=== PATIENT | male | born 1980 | race Caucasian/White ===

== ENCOUNTER 2017-01-22 15:50 | Emergency (ER) | payer SELFPAY ==
[~2017-01-22] VITALS: Ht 162.6 cm; Wt 56.7 kg
[2017-01-22 16:17] VITALS: BP 124/77
[2017-01-22] MEDS ORDERED: TRAM-29 PO (16:36)
[2017-01-22] MEDS ORDERED: METH-37 PO (16:36)
[2017-01-22] MEDS ORDERED: METH4TAB2 PO (16:36)
--- NOTE | 2017-01-22 16:36 | PHYS DOC ---
Adult General Chief Complaint Chief Complaint: BACK PAIN - NO INJURY HPI HPI Patient is a 36 year old male with history of asthma and chronic left low back pain radiating into the left lower extremity who presents today complaining of exacerbation of chronic back pain radiating into the left lower extremity. Patient states he palpated and knot on the left low back which she believes is the source for his pain. Patient denies any new injuries. Denies any loss of bowel bladder function. Review of Systems Review of Systems Constitutional: Denies fever or chills [] Eyes: Denies change in visual acuity, redness, or eye pain [] GI: Denies abdominal pain, nausea, vomiting, bloody stools or diarrhea [] : Denies dysuria or hematuria [] Musculoskeletal: Denies back pain or joint pain [] Integument: Low back pain, knot on the back Neurologic: Denies headache, focal weakness or sensory changes [] Endocrine: Denies polyuria or polydipsia [] Allergies Allergies Allergies Coded Allergies Type Severity Reaction Last Updated Verified No Known Drug Allergies 01/22/17 No Physical Exam Physical Exam Constitutional: Well developed, well nourished, no acute distress, non-toxic appearance. [] HENT: Normocephalic, atraumatic, bilateral external ears normal, oropharynx moist, no oral exudates, nose normal. [] Abdomen: Bowel sounds normal, soft, no tenderness, no masses, no pulsatile masses. [] Skin: Warm, dry, no erythema, no rash. [] Back: Tiny knot suspicious of a fatty tumor approximately 1 x 1 cm on the left lower lumbar region. Diffuse paraspinal muscle tenderness to the left lower lumbar region, no midline tenderness, no CVA tenderness. [] Extremities: No tenderness, no cyanosis, no clubbing, ROM intact, no edema. [] Neurologic: Alert and oriented X 3, normal motor function, normal sensory function, no focal deficits noted. [] Psychologic: Affect normal, judgement normal, mood normal. [] EKG EKG [] Radiology/Procedures Radiology/Procedures [] Course & Med Decision Making Course & Med Decision Making Pertinent Labs and Imaging studies reviewed. (See chart for details) Patient is in the ED complaining of chronic low back pain with sciatica. He is concerned about not on his low back. Did not appears to be a fatty tumor. Reassured him it's not the source of his pain. Recommended he follows up with the primary care doctor in the pain clinic which was provided. Shannan Disclaimer Shannan Disclaimer This electronic medical record was generated, in whole or in part, using a voice recognition dictation system. Departure Departure Impression: Primary Impression: Back pain Additional Impressions: Sciatic leg pain Lipoma Disposition: HOME, SELF-CARE Condition: STABLE Referrals: NO PCP (PCP) Follow-up with a doctor from the list provided Patient Instructions: Back Pain, Adult, Lipoma-Brief Additional Instructions: You were seen for chronic low back pain with sciatica. We highly recommend you establish care with one of the doctors from the list provided. Consider following up with the pain clinic as well. Scripts Methylprednisolone (Medrol)4 Mg Tab.ds.pk1 Pkg PO UD #1 PKG Prov:JANETTE BROWN APRN 01/22/17 Tramadol Hcl (Ultram)50 Mg Tablet1 Tab PO Q6HRS #30 TAB Prov:JANETTE BROWN APRN 01/22/17 Methocarbamol (Robaxin)500 Mg Tablet1 Tab PO TID #30 TAB Prov:JANETTE BROWN APRN 01/22/17 Problem Qualifiers Primary Impression: Back pain Back pain location: back pain in unspecified location Chronicity: chronic Back pain laterality: left Qualified Code: M54.9 - Dorsalgia, unspecified Additional Impressions: Lipoma Lipoma location: trunk Qualified Code: D17.1 - Benign lipomatous neoplasm of skin and subcutaneous tissue of trunk JANETTE BROWN APRN January 22, 2017 16:36
== END 2017-01-22 16:49 | disposition home or self-care (01) ==
LOC: ER 15:50
DX: M54.42 Lumbago with sciatica, left side (principal); D17.1 Benign lipomatous neoplasm of skin and subcutaneous tissue of trunk; J45.909 Unspecified asthma, uncomplicated
CPT/HCPCS: 99283

== ENCOUNTER 2017-03-21 10:31 | Emergency (ER) | payer SELFPAY ==
[~2017-03-21] VITALS: Ht 162.6 cm; Wt 54.4 kg
[~2017-03-21 10:31] MED LIST: METH-37 PO; METH4TAB2 PO; TRAM-48 PO
[2017-03-21 11:01] VITALS: BP 105/57
[2017-03-21] MEDS ORDERED: HYDROcodone/APAP 5/325MG 1 TAB TABLET PO ONE (11:45)
--- NOTE | 2017-03-21 11:54 | RAD ---
Indication: Right hand injury and pain and swelling Time of exam 11:45 AM The distal radius and ulna are intact. The carpus is intact. Metacarpals and phalanges are intact. No fractures are seen. No significant soft tissue swelling is seen. Impression: No acute bony abnormality is detected.
--- NOTE | 2017-03-21 12:15 | RAD ---
Indication: Fall and right shoulder pain. Time of exam 11:41 AM 3 views of the right shoulder were obtained. The glenohumeral and acromial clavicular alignment are normal. The acromiohumeral space is normal. No fracture or dislocation is detected. Impression: No acute abnormality is detected.
[2017-03-21] MEDS ORDERED: METH-37 PO (12:43)
[2017-03-21] MEDS ORDERED: TRAM-48 PO (12:43)
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
== END 2017-03-21 12:45 | disposition home or self-care (01) ==
LOC: ER 10:31
DX: S46.911A Strain of unspecified muscle, fascia and tendon at shoulder and upper arm level, right arm, initial encounter (principal); S63.91XA Sprain of unspecified part of right wrist and hand, initial encounter; F41.9 Anxiety disorder, unspecified; J45.909 Unspecified asthma, uncomplicated; F32.9 Major depressive disorder, single episode, unspecified; G89.29 Other chronic pain; Y04.0XXA Assault by unarmed brawl or fight, initial encounter; Y93.89 Activity, other specified; Y92.89 Other specified places as the place of occurrence of the external cause; Y99.8 Other external cause status
CPT/HCPCS: 73030; 73130; 99284

== ENCOUNTER 2017-03-25 23:27 | Emergency (ER) | payer SELFPAY ==
[~2017-03-25] VITALS: Ht 162.6 cm; Wt 54.4 kg
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
[2017-03-26] MEDS ORDERED: IV NORMAL SALINE 1000ML BAG 1,000 ML IV SCH (00:15)
[2017-03-26] MEDS ORDERED: methylPREDNISolone SOD SUCC PF 125 MG/2 ML VIAL. IV ONE (00:30)
[2017-03-26] MEDS ORDERED: FAMOTIDINE 20 MG/2 ML VIAL IVP ONE (00:30)
[2017-03-26] MEDS ORDERED: diphenhydrAMINE 50 MG/ML VIAL IV ONE (00:30)
[2017-03-26 00:49] LABS: BASO # 0.1 x10^3/uL (0.0-0.2); BASO % 1 % (0-3); EOS % 1 % (0-3); HEMATOCRIT 39.2 % (39.0-53.0); HEMOGLOBIN 12.9 g/dL (13.0-17.5); LYMPH # 1.7 x10^3/uL (1.0-4.8); LYMPH % 14 % (24-48); MEAN CORPUSCULAR HEMOGLOBIN 30 pg (25-35); MEAN CORPUSCULAR HGB CONC 33 g/dL (31-37); MEAN CORPUSCULAR VOLUME 92 fL (79-100); MONO % 10 % (0-9); NEUT % 75 % (31-73); PLATELET COUNT 257 x10^3/uL (140-400); RED BLOOD COUNT 4.27 x10^6/uL (4.30-5.70); RED CELL DISTRIBUTION WIDTH 14.4 % (11.5-14.5); WHITE BLOOD COUNT 11.7 x10^3/uL (4.0-11.0)
[2017-03-26 01:00] LABS: CALCIUM 8.3 mg/dL (8.5-10.1); POTASSIUM 3.3 mmol/L (3.5-5.1)
[2017-03-26] MEDS ORDERED: CLINDAMYCIN 900MG PREMIX 50 ML IV ONE (01:00)
--- NOTE | 2017-03-26 01:22 | RAD ---
CT scan of the head without contrast 03/26/2017 Clinical History: Sudden onset of left facial swelling since 10:30 last night. Technique: Unenhanced, contiguous, 5 mm axial sections were obtained through the head. One or more of the following individualized dose reduction techniques were utilized for this study: 1. Automated exposure control. 2. Adjustment of the mA and/or kV according to patient size. 3. Use of iterative reconstruction technique. Findings: The ventricles and sulci are within normal limits in size and configuration. No focal area of abnormal attenuation is seen involving the brain parenchyma. No extra-axial fluid collection is seen. No skull fracture is seen. Impression: Negative study. CT scan of the facial bones without contrast 03/26/2017 CLINICAL HISTORY: Sudden onset of left facial swelling at 10:30 last night. TECHNIQUE: Unenhanced, contiguous, 0.625 mm axial sections were obtained through the facial bones and orbits. 3 mm reconstructed sagittal, axial and coronal images were obtained. One or more of the following individualized dose reduction techniques were utilized for this study: 1. Automated exposure control. 2. Adjustment of the mA and/or kV according to patient size. 3. Use of iterative reconstruction technique. FINDINGS: A 1.4 cm mucous retention cyst is seen involving the inferior right maxillary sinus. A 1.1 cm mucous retention cyst is seen involving the left maxillary sinus. Soft tissue swelling and edema is seen involving the left face involving the left aspect of the mandible. No abnormal fluid collection is seen. The patient has multiple dental fillings/crowns. Several caries are noted. No periapical lucency is seen involving the mandible. IMPRESSION: Soft tissue swelling and edema is seen involving the left face near the left mandible. No abscess is seen. Electronically signed by: Jaciel Francis MD (03/26/2017 1:19 AM)
[2017-03-26] MEDS ORDERED: CLIN300C8 PO (01:59)
[2017-03-26] MEDS ORDERED: PRED20TA PO (01:59)
[2017-03-26 02:18] VITALS: BP 96/55
== END 2017-03-26 02:19 | disposition home or self-care (01) ==
LOC: ER 23:27
DX: K04.7 Periapical abscess without sinus (principal); R22.0 Localized swelling, mass and lump, head; G89.29 Other chronic pain; J45.909 Unspecified asthma, uncomplicated
CPT/HCPCS: 36415; 70450; 70486; 80048; 85027; 96361; 96365; 96375; 99285; J1200; J2930; J3490; J7030; S0028

== ENCOUNTER 2017-04-18 12:30 | Emergency (ER) | payer SELFPAY ==
[~2017-04-18] VITALS: Ht 162.6 cm; Wt 53.1 kg
[~2017-04-18 12:30] MED LIST changes: +CLIN300C8 PO; +PRED20TA PO
--- NOTE | 2017-04-18 13:10 | RAD ---
Right thumb, 3 views, 04/18/2017: History: Thumb injury No fracture or dislocation is identified. IMPRESSION: No significant abnormality is detected.
[2017-04-18] MEDS ORDERED: BUPIVACAINE 0.5% 50 ML VIAL. IJ ONE (13:45)
--- NOTE | 2017-04-18 14:03 | PHYS DOC ---
Past Medical History Past Medical History: Anxiety, Asthma, Depression, Other Additional Past Medical Histor: CHRONIC BACK PAIN Past Surgical History: Other Additional Past Surgical Histo: FACAIL RECONSTRUCTION Alcohol Use: Occasionally Drug Use: None Adult General Chief Complaint Chief Complaint: THUMB HPI HPI Patient is a 36 year old male with history of anxiety and depression who presents with right thumb contusion and subungual hematoma. Patient states on Saturday this week which is 4 days ago he got his right thumb hit while changing some bolts. Review of Systems Review of Systems Constitutional: Denies fever or chills [] Musculoskeletal: right thumb contusion and subungual hematoma Integument: Denies rash or skin lesions [] Neurologic: Denies headache, focal weakness or sensory changes [] Endocrine: Denies polyuria or polydipsia [] Current Medications Current Medications Current Medications Medications (Trade) Dose Ordered Sig/Kemar Start Time Stop Time Status Last Admin Dose Admin Bupivacaine HCl (Marcaine 0.5%) 50 ml 1X ONCE 04/18/17 13:45 04/18/17 13:46 DC 04/18/17 13:36 50 ML Allergies Allergies Allergies Coded Allergies Type Severity Reaction Last Updated Verified No Known Drug Allergies 01/22/17 No Physical Exam Physical Exam Constitutional: Well developed, well nourished, no acute distress, non-toxic appearance. [] Skin: Warm, dry, no erythema, no rash. [] Back: No tenderness, no CVA tenderness. [] Extremities: Right distal thumb with mild amount of soft tissue swelling. There is subungual hematoma approximately 80% of the nailbed. Tenderness on palpation of the right distal thumb. Full range of motion to the right thumb including flexion and extension. +2 right radial pulse. Adequate radial sensation to the right thumb. Cap refill less than 2 seconds the right thumb. Neurologic: Alert and oriented X 3, normal motor function, normal sensory function, no focal deficits noted. [] Psychologic: Affect normal, judgement normal, mood normal. [] Current Patient Data Vital Signs Vital Signs Date Time Temp Pulse Resp B/P (MAP) Pulse Ox O2 Delivery O2 Flow Rate FiO2 04/18/17 14:25 90 16 90/53 (65) 98 Room Air 04/18/17 13:03 98.5 98.5 EKG EKG [] Radiology/Procedures Radiology/Procedures []PROCEDURE: FINGER(S) RIGHT Right thumb, 3 views, 04/18/2017: History: Thumb injury No fracture or dislocation is identified. IMPRESSION: No significant abnormality is detected. DICTATED and SIGNED BY: RICKY ARCOS MD DATE: 04/18/17 7659 CC: JANETTE BROWN APRN; NO PCP; NON,STAFF ~ Course & Med Decision Making Course & Med Decision Making Pertinent Labs and Imaging studies reviewed. (See chart for details) Patient is in the ED with right thumb contusion with subungual hematoma encompassing 80% of the nailbed. Right thumb x-rays 3 views interpreted by radiologist are negative for any acute findings. is requesting we drain the subungual hematoma. As i did a digital block to the thumb, patient became very lightheaded and requested we stop the procedure. I did lay patient down got vitals. Placed a cold towel his head. Vitals were monitored for a while once stable and he was discharged. Tetanus is up todate. Dragon Disclaimer Dragon Disclaimer This electronic medical record was generated, in whole or in part, using a voice recognition dictation system. Departure Departure Impression: Primary Impression: Contusion of right thumb Additional Impression: Hematoma, subungual, thumb, right Disposition: 01 HOME, SELF-CARE Condition: STABLE Referrals: NO PCP (PCP) ZION FITCH MD follow up in 1 week Patient Instructions: Contusion, [id number], Subungual Hematoma, [id number] Additional Instructions: You were seen for right thumb contusion with subungual hematoma. Your x-rays of the right thumb were negative for any acute findings. We provided you an orthopedic doctor. Call his office in the next 7 days. Follow-up as needed. Ice elevate the extremity. Take [id number] pain relievers as needed. Problem Qualifiers Primary Impression: Contusion of right thumb Encounter type: initial encounter Damage to nail status: without damage Qualified Codes: S60.011A - Contusion of right thumb without damage to nail, initial encounter Additional Impression: Hematoma, subungual, thumb, right Encounter type: initial encounter Qualified Codes: S60.111A - Contusion of right thumb with damage to nail, initial encounter JANETTE BROWN APRN Apr 18, 2017 14:03
[2017-04-18 14:25] VITALS: BP 90/53
== END 2017-04-18 15:22 | disposition home or self-care (01) ==
LOC: ER 12:30
DX: S60.111A Contusion of right thumb with damage to nail, initial encounter (principal); J45.909 Unspecified asthma, uncomplicated; G89.29 Other chronic pain; M54.9 Dorsalgia, unspecified; X58.XXXA Exposure to other specified factors, initial encounter; Y93.89 Activity, other specified; Y99.8 Other external cause status; Y92.89 Other specified places as the place of occurrence of the external cause
CPT/HCPCS: 64450; 73140; 99284; J3490

== ENCOUNTER 2017-07-06 20:11 | Emergency (ER) | payer OTHER ==
[~2017-07-06] VITALS: Ht 160 cm; Wt 53.1 kg
[2017-07-06 20:17] VITALS: BP 128/84
[2017-07-06] MEDS ORDERED: FLUORESCEIN OPHTH TEST STRIP. OS ONE (20:45)
[2017-07-06] MEDS ORDERED: TETRACAINE 0.5% OPHTH SOLUTION 4ML BOTTLE. OS ONE (20:45)
[2017-07-06] MEDS ORDERED: TRAM-48 PO (20:55)
[2017-07-06] MEDS ORDERED: TOBR5DRO6 LEFTEYE (20:55)
--- NOTE | 2017-07-06 20:55 | PHYS DOC ---
Past Medical History Past Medical History: Anxiety, Asthma, Depression, Other Additional Past Medical Histor: CHRONIC BACK PAIN Past Surgical History: Other Additional Past Surgical Histo: FACAIL RECONSTRUCTION Alcohol Use: Occasionally Drug Use: None Adult General Chief Complaint Chief Complaint: EYE PROBLEMS HPI HPI Patient is a 36 year old male who presents with foreign object sensation to the left eye that he noted this morning after getting off work. 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 Patient denies any vision loss. Review of Systems Review of Systems Constitutional: Denies fever or chills [] Eyes:foreign object sensation to the left eye. Denies change in visual acuity, Musculoskeletal: Denies back pain or joint pain [] Integument: Denies rash or skin lesions [] Neurologic: Denies headache, focal weakness or sensory changes [] Current Medications Current Medications Current Medications Medications (Trade) Dose Ordered Sig/Kemar Start Time Stop Time Status Last Admin Dose Admin Fluorescein Sodium (Ful-Mary) 1 strip 1X ONCE 07/06/17 20:45 07/06/17 20:46 DC 07/06/17 20:21 1 STRIP Tetracaine HCl (Tetracaine) 1 drop 1X ONCE 07/06/17 20:45 07/06/17 20:46 DC 07/06/17 20:21 1 DROP Allergies Allergies Allergies Coded Allergies Type Severity Reaction Last Updated Verified No Known Drug Allergies 01/22/17 No Physical Exam Physical Exam Constitutional: Well developed, well nourished, no acute distress, non-toxic appearance. [] HENT: Normocephalic, atraumatic, bilateral external ears normal, oropharynx moist, no oral exudates, nose normal. [] Eyes: PERRLA, EOMI, left conjunctiva has slight erythema. There is an obvious rust ring noted at 1530 position in the left cornea. Skin: Warm, dry, no erythema, no rash. [] Back: No tenderness, no CVA tenderness. [] Neurologic: Alert and oriented X 3, normal motor function, normal sensory function, no focal deficits noted. [] Psychologic: Affect normal, judgement normal, mood normal. [] Current Patient Data Vital Signs Vital Signs Date Time Temp Pulse Resp B/P (MAP) Pulse Ox O2 Delivery O2 Flow Rate FiO2 07/06/17 20:17 98.3 77 16 100 Room Air 98.3 EKG EKG [] Radiology/Procedures Radiology/Procedures Indication: Rust ring in the left eye Procedure: The area of the foreign body was left eye. Local anesthesia over the foreign body site was tetracaine and the eye was stained with fluorescein. I attempted using clyde to remove it but patient blinked alot making it hard to remove it. The patient tolerated the procedure well Complications:none Course & Med Decision Making Course & Med Decision Making Pertinent Labs and Imaging studies reviewed. (See chart for details) Patient has a rust ring in the left eye that has been present from unknown period of time. I attempted to remove it with no success. Recommended following up with the rejogger on Saturday. Discharged with tobramycin eyedrops. Tetanus is up-to-date. Dragon Disclaimer Dragon Disclaimer This electronic medical record was generated, in whole or in part, using a voice recognition dictation system. Departure Departure Impression: Primary Impression: Corneal rust ring of left eye Disposition: HOME, SELF-CARE Condition: STABLE Referrals: NO PCP (PCP) SANTI JOHNSON MD call him on Saturday and follow up Patient Instructions: Eye - Corneal Foreign Body Additional Instructions: You were seen with a foreign object in the left eye. We recommend you contact the provided rejogger on Saturday morning and have them remove it. You can patch/cover the left eye for comfort. Scripts Tramadol Hcl (ULTRAM) 50 Mg Tablet 1 TAB PO Q6HRS, #30 TAB Prov: JANETTE BROWN APRN 07/06/17 Tobramycin (TOBRAMYCIN) 5 Ml Drops 1 DROP LEFTEYE Q4HRS W/A, #5 ML Prov: JANETTE BROWN APRN 07/06/17 JANETTE BROWN APRN Jul 06, 2017 20:55
== END 2017-07-06 21:00 | disposition home or self-care (01) ==
LOC: ER 20:11
DX: T15.02XA Foreign body in cornea, left eye, initial encounter (principal); J45.909 Unspecified asthma, uncomplicated; G89.29 Other chronic pain; X58.XXXA Exposure to other specified factors, initial encounter; Y93.89 Activity, other specified; Y99.8 Other external cause status; Y92.89 Other specified places as the place of occurrence of the external cause
CPT/HCPCS: 65220; 99284-25

== ENCOUNTER 2017-08-11 23:46 | Emergency (ER) | payer OTHER ==
[~2017-08-11] VITALS: Ht 160 cm; Wt 53.1 kg
[~2017-08-11 23:46] MED LIST changes: +TOBR5DRO6 LEFTEYE
[2017-08-12 00:10] VITALS: BP 127/71
--- NOTE | 2017-08-12 00:31 | PHYS DOC ---
Past Medical History Past Medical History: Anxiety, Asthma, Depression, Other Additional Past Medical Histor: CHRONIC BACK/NECK PAIN Past Surgical History: Other Additional Past Surgical Histo: FACAIL RECONSTRUCTION Alcohol Use: Occasionally Drug Use: None Adult General Chief Complaint Chief Complaint: Neck Pain HPI HPI Patient is a 36 year old male who presents with moderate throbbing chronic neck pain since 2008. Patient denies any any injury denies any pain radiating to upper extremities, denies any numbness or tingling to bilateral UE. Patient states he would like a neurosurgeon, and see him in the ED right now. Review of Systems Review of Systems Constitutional: Denies fever or chills [] Musculoskeletal: chronic neck pain Integument: Denies rash or skin lesions [] Neurologic: Denies headache, focal weakness or sensory changes [] All other systems were reviewed and found to be within normal limits, except as documented in this note. Allergies Allergies Allergies Coded Allergies Type Severity Reaction Last Updated Verified No Known Drug Allergies 01/22/17 No Physical Exam Physical Exam Constitutional: Well developed, well nourished, no acute distress, non-toxic appearance. [] Skin: Warm, dry, no erythema, no rash. [] Back: No tenderness, no CVA tenderness. [] neck:no obvious deformity, no tenderness. Full ROM to the cervical spine. Extremities: No tenderness, no cyanosis, no clubbing, ROM intact, no edema. [] Neurologic: Alert and oriented X 3, normal motor function, normal sensory function, no focal deficits noted. [] Psychologic: Affect normal, judgement normal, mood normal. [] Current Patient Data Vital Signs Vital Signs Date Time Temp Pulse Resp B/P (MAP) Pulse Ox O2 Delivery O2 Flow Rate FiO2 08/12/17 00:10 98.1 86 18 127/71 (89) 97 Room Air 98.1 EKG EKG [] Radiology/Procedures Radiology/Procedures [] Course & Med Decision Making Course & Med Decision Making Pertinent Labs and Imaging studies reviewed. (See chart for details) Patient is in the ED with chronic neck pain and demanding to be seen by neurosurgery right now. Informed patient this is not possible recommended they follow up as an outpatient. Patient stood up and left stating this is the same "blow shit" this hospital keep taking me through cycles. the then mentioned they have been to [facility] and the information was the same. was given F/U information. Dragon Disclaimer Dragon Disclaimer This electronic medical record was generated, in whole or in part, using a voice recognition dictation system. Departure Departure Impression: Primary Impression: Chronic neck pain Disposition: HOME, SELF-CARE Condition: STABLE Referrals: NO PCP (PCP) DOT HILL MD follow up in one week JANETTE BROWN APRN Aug 12, 2017 00:31
== END 2017-08-12 00:32 | disposition home or self-care (01) ==
LOC: ER 23:46
DX: G89.29 Other chronic pain (principal); M54.2 Cervicalgia; F41.9 Anxiety disorder, unspecified; J45.909 Unspecified asthma, uncomplicated; F32.9 Major depressive disorder, single episode, unspecified
CPT/HCPCS: 99281

== ENCOUNTER → 2018-01-01 | Outpatient (CLI) | payer OTHER | END | disposition home or self-care (01) | LOC: US 07:43 | DX: R22.9 Localized swelling, mass and lump, unspecified (principal) | CPT/HCPCS: 76881 ==